=== PATIENT | male | born 1955 ===

== ENCOUNTER 2019-02-26 09:11 | Outpatient (CLI) | payer MEDICAID ==
--- NOTE | 2019-02-26 10:48 | ULT ---
EXAM: US Hepatic Doppler PROVIDED CLINICAL HISTORY: Chronic hepatitis. COMPARISON: None FINDINGS: The liver demonstrates a coarsened echotexture which is nonspecific but may be related to fatty infil tration. No discrete focal hepatic lesion is identified. There is a prominent fold present within the gallbladder, but no gallbladder calculus is seen. There is no gallbladder wall thickening or pericholecystic fluid identified. The common duct measures 0.4 cm in diameter which is within normal limits. Abdominal aorta is not well visualized due to shadowing from bowel gas. The limited visualized portio ns of the IVC, and limited visualized portions of the pancreas demonstrate a normal sonographic appearance. The spleen is borderline enlarged measuring 13.7 cm in length. Hepatic Doppler evaluation with spectral analysis and color flow evaluation: Arterial waveforms are seen within the hepatic and splenic arteries. Normal directional flow is seen within the hepatic and splenic veins. Waveform analysis of the portal veins demonstrates arterial waveforms. This may be artifactual and related to closely adjacent arterial vessels. Given this finding, follow-up ultrasound evaluation versus CT of the abdomen is sug gested to evaluate for patency of the portal veins. Again, the splenic vein is patent and demonstrates a normal venous waveform. IMPRESSION: 1. Coarsened echotexture of the liver suggesting fatty infiltration. 2. Borderline splenomegaly. 3. Normal directional flow within the splenic vein and hepatic veins. However, a normal appearing wav eform involving the portal veins is not detected, and the provided images demonstrate arterial waveforms which are labeled portal vein. This may be artifactual related to adjacent arteries. As res ult, a follow-up hepatic ultrasound examination versus CT abdomen with IV contrast in the portal venous phase of imaging is recommended for further evaluation.
== END 2019-02-26 09:12 | disposition home or self-care (01) ==
LOC: BICULT 09:11
PROVIDERS: ATTEND Physician Assistant Medical
DX: K72.90 Hepatic failure, unspecified without coma (principal); B18.2 Chronic viral hepatitis C; K74.60 Unspecified cirrhosis of liver; R93.2 Abnormal findings on diagnostic imaging of liver and biliary tract; R16.1 Splenomegaly, not elsewhere classified
CPT/HCPCS: 76705